=== PATIENT | female | born 1980 | race Caucasian/White ===

== ENCOUNTER 2017-08-28 21:30 | Day surgery (SDC) | payer OTHER ==
[2017-08-28] MEDS ORDERED: MORPHINE SULFATE 10 MG/ML INJ IV ONE (22:23)
[2017-08-28 22:39] LABS: ABSOLUTE BASOPHILS # (AUTO) 0.1 10^3/uL (0.0-0.2); ABSOLUTE EOSINOPHILS # (AUTO) 0.1 10^3/uL (0.0-0.6); ABSOLUTE LYMPHOCYTES (AUTO) 2.7 10^3/uL (0.5-4.7); ABSOLUTE NEUT (AUTO) 13.1 10^3/uL (1.7-8.2); BASOPHILS % (AUTO) 0.4 % (0-2); EOSINOPHILS % (AUTO) 0.6 % (0-6); HEMATOCRIT 36.8 % (36.0-47.0); HEMOGLOBIN 12.4 g/dL (12.0-15.5); MEAN CORPUSCULAR HEMOGLOBIN 30.1 pg (27.0-33.4); MEAN CORPUSCULAR HGB CONC 33.8 g/dL (32.0-36.0); MEAN CORPUSCULAR VOLUME 89 fl (80-97); MONOCYTES % (AUTO) 5.8 % (3-13); PLATELET COUNT 359 10^3/uL (150-450); RED BLOOD COUNT 4.13 10^6/uL (3.72-5.28); SEGMENTED NEUTROPHILS % (AUTO) 77.2 % (42-78); TOTAL CELLS COUNTED % (AUTO) 100 %
[2017-08-28 23:06] LABS: APPEARANCE,URINE CLEAR; BILIRUBIN,URINE NEGATIVE (NEGATIVE); COLOR,URINE YELLOW; GLUCOSE, URINE NEGATIVE (NEGATIVE); KETONES,URINE NEGATIVE (NEGATIVE); LEUKOCYTE ESTERASE,URINE NEGATIVE (NEGATIVE); NITRITE,URINE NEGATIVE (NEGATIVE); PROTEIN,URINE NEGATIVE (NEGATIVE); URINE SPECIFIC GRAVITY 1.013
[2017-08-28] MEDS ORDERED: FENTANYL CITRATE INJ/PF 100 MCG/2 ML AMPUL IV ONE (23:14)
[2017-08-28] MEDS ORDERED: HYDROMORPHONE HCL INJ/PF 2 MG/ML AMPULE IV ONE (23:27)
--- NOTE | 2017-08-28 23:29 | ER Document Report ---
ED General - General Chief Complaint: Abdominal Pain Stated Complaint: ABDOMINAL PAIN Time Seen by Provider: 08/28/17 21:58 Notes: Patient is a 36-year-old female presents with complaint of severe abdominal pain started today. She says she did have a small amount of bleeding that has since resolved. No fevers. No vomiting. She is . She has had 2 previous miscarriages. She recently found out she was . [facility] That time her ultrasound did not identify an IUP. Lars started having the pain and therefore came to the ER. She was formally on methotrexate due to history of psoriasis. She has not had this in over 4 months. TRAVEL OUTSIDE OF THE [place] IN LAST 30 DAYS: No - Related Data Allergies/Adverse Reactions: diphenhydramine [From Benadryl] Allergy (Verified 08/28/17 22:37) metoclopramide [From Reglan] Allergy (Verified 08/28/17 22:37) Past Medical History - Social History Smoking Status: Current Every Day Smoker Chew tobacco use (# tins/day): No Frequency of alcohol use: None Drug Abuse: Marijuana Family History: Reviewed & Not Pertinent Patient has suicidal ideation: No Patient has homicidal ideation: No Renal/ Medical History: Denies: Hx Peritoneal Dialysis Review of Systems - Review of Systems Notes: My Normal Review Basic REVIEW OF SYSTEMS: CONSTITUTIONAL : Denies fever, chills, or sweats. Denies recent illness. CARDIOVASCULAR: Denies chest pain. RESPIRATORY: Denies cough, cold, or chest congestion. Denies shortness of breath, difficulty breathing, or wheezing. GASTROINTESTINAL: Moderate abdominal pain. Denies nausea, vomiting, or diarrhea. Genital: Pelvic pain, Currently , Some vaginal bleeding. GENITOURINARY: Denies difficulty urinating, painful urination, burning, frequency, or blood in urine MUSCULOSKELETAL: Denies neck or back pain or joint pain or swelling. SKIN: Denies rash or skin lesions. NEUROLOGICAL: Denies altered mental status or loss of consciousness. Denies headache. Denies weakness or paralysis or loss of use of either side. Denies problems with gait or speech. Denies sensory or motor loss. ALL OTHER SYSTEMS REVIEWED AND NEGATIVE. Physical Exam - Vital signs Vitals: Temp 98.5 F 08/28/17 21:30 - Notes Notes: General Appearance: Well nourished, alert, cooperative, no acute distress, moderate to severe obvious discomfort. Vitals: reviewed, See vital signs table. Head: no swelling or tenderness to the head Eyes: PERRL, EOMI, Conjuctiva clear Mouth: No decreasd moisture Neck: Supple, no neck tenderness, No thyromegaly Lungs: No wheezing, No rales, No rhonci, No accessory muscle use, good air exchange bilaterally. Heart: Normal rate, Regular rythm, No murmur, no rub Abdomen: Normal BS, soft, No rigidity, abdomen is slightly distended but soft to palpation. She is tender diffusely but is worse in the lower abdomen and pelvic region. Pain is not significantly lateralizing., No guarding, no rebound , no abdominal masses, no organomegaly Pelvic exam: Pelvic exam performed with female technician biological health Jailene PCT. Patient has normal external genitalia. No blood in vaginal vault. Cervical office is currently closed. No abnormal discharge. Extremities: strength 5/5 in all extremities, good pulses in all extremities, no swelling or tenderness in the extremities, no edema. Skin: warm, dry, appropriate color, no rash Neuro: speech clear, oriented x 3, normal affect, responds appropriately to questions. Course - Re-evaluation Re-evalutation: 08/28/17 23:27 When initially evaluated the patient she was having significant amount of pain therefore I did a quick bedside FAST exam to rule out any free fluid in the abdomen pelvis. There is none on my bedside FAST exam. Patient continues to have increasing pain. I reevaluate her again her abdomen remains very tender. I have informed them that we need to have the ultrasound performed bedside. They are going to call to have the transvaginal ultrasound performed bedside. She is on a monitor. Heart rate is in the 90s. Blood pressure systolically is 145. I did repeat the FAST exam again and there continues not be any evidence of free fluid in abdomen. She received morphine and fentanyl. I have just added Dilaudid as well. Pelvic exam shows no blood in the vaginal vault and no clots in the cervical office. Os is closed at this time. 08/29/17 00:50 Patient's ultrasound shows no intrauterine and her hCG levels above 2000. There seems some adnexal lesions but no true ectopic at this time. Dr. Person, cylinder tester, agrees to evaluate the patient for concern for ectopic. 08/29/17 05:46 Dr. Person did evaluate the patient and agrees with concern for ectopic and took the patient to the OR. Dictation of this chart was performed using voice recognition software; therefore, there may be some unintended grammatical errors. - Vital Signs Vital signs: Temp Pulse Resp BP Pulse Ox 97.8 F 76 16 101/48 L 99 08/29/17 04:45 08/29/17 04:45 08/29/17 04:45 08/29/17 04:45 08/29/17 04:45 - Laboratory Result Diagrams: 08/28/17 22:18 Laboratory results interpreted by me: 08/28/17 08/28/17 08/28/17 22:18 22:18 22:50 WBC 17.0 H Absolute Neutrophils 13.1 H Beta HCG, Quant 2843.80 H Urine Blood SMALL H Urine Urobilinogen 4.0 H Discharge - Discharge Clinical Impression: Abdominal pain Qualifiers: Abdominal location: unspecified location Qualified Code(s): R10.9 - Unspecified abdominal pain Disposition: ADMITTED INPATIENT Admitting Provider: [facility] Admitted: Post
--- NOTE | 2017-08-29 00:39 | RADIOLOGY REPORT (SQ) ---
EXAM DESCRIPTION: US TRANSVAGINAL CLINICAL HISTORY: 36 years Female, abdominal pain in Comparison: None. TECHNIQUE: Transvaginal. LIMITATIONS: None. FINDINGS: No intrauterine identified. 0.9 cm endometrial stripe thickness. Heterogeneous, echogenic right adnexal mass measures 5.6 x 5.2 x 5.3 cm. Small right adnexal free fluid. Indeterminate 4.1 x 2.8 x 3.4 cm complex hypoechoic component of the left adnexa. Likely 3.9 x 3.5 x 3.6 cm complex hypoechoic left ovary. Bilateral adnexal components demonstrate no significant vascularity. IMPRESSION: No intrauterine identified. Indeterminate bilateral adnexal components and small free right adnexal fluid. Differential diagnosis includes occult early viable gestation, gestational loss, and ectopic gestation. OB consultation advised.
[2017-08-29] MEDS ORDERED: NORMAL SALINE 1000 ML 1,000 ML IV ONE (00:54)
[2017-08-29] MEDS ORDERED: FENTANYL CITRATE INJ/PF 100 MCG/2 ML AMPUL ONE ×3 (01:55→03:59)
[2017-08-29] MEDS ORDERED: PROPOFOL INJ 200 MG/20 ML VIAL IV ONE (01:55)
[2017-08-29] MEDS ORDERED: BUPIVACAINE HCL 0.25 % INJ/PF (2.5 MG/1 ML) 30 ML VIAL ONE (01:55)
[2017-08-29] MEDS ORDERED: ACETAMINOPHEN 100 ML IV ONE (01:55)
[2017-08-29] MEDS ORDERED: MIDAZOLAM 2 MG/2 ML INJ ONE (01:55)
[2017-08-29] MEDS ORDERED: HYDROMORPHONE HCL INJ/PF 2 MG/ML AMPULE ONE (01:56)
[2017-08-29] MEDS ORDERED: MORPHINE SULFATE 10 MG/ML INJ IV PRN (02:50)
[2017-08-29] MEDS ORDERED: FENTANYL CITRATE INJ/PF 100 MCG/2 ML AMPUL IV PRN ×3 (02:50)
[2017-08-29] MEDS ORDERED: PROMETHAZINE HCL INJ 25 MG/1 ML VIAL IV PRN (02:50)
[2017-08-29] MEDS ORDERED: MEPERIDINE HCL/PF INJ 25 MG/1 ML DISP.SYRIN IV PRN (02:50)
[2017-08-29] MEDS ORDERED: DEXTROSE 5%-LACTATED RINGERS 1,000 ML IV PRN (03:56)
[2017-08-29] MEDS ORDERED: OXYCODONE-ACETAMINOPHEN 5-325 MG TABLET PO PRN (03:57)
[2017-08-29] MEDS ORDERED: MORPHINE SULFATE 10 MG/ML INJ IM PRN (03:59)
[2017-08-29] MEDS ORDERED: IBUPROFEN 800 MG TABLET PO ONE (04:00)
--- NOTE | 2017-08-29 04:15 | OPERATIVE REPORT E ---
Operative Report NAME: MARY YOUNG : 1980 AGE: 36Y DATE OF SURGERY: 08/29/2017 ROOM: ED07 PREOPERATIVE DIAGNOSIS: ECTOPIC . POSTOPERATIVE DIAGNOSES: 1. ECTOPIC . 2. HEMOPERITONEUM. PROCEDURES: 1. Suction dilation and curettage. 2. Diagnostic laparoscopy with a right salpingectomy. ESTIMATED BLOOD LOSS: Approximately 500 mL from blood that was aspirated from her abdomen. SURGEON: Denys MCDANIELS M.D. ANESTHESIA: General. DESCRIPTION OF PROCEDURE: The patient was placed in a dorsal lithotomy position, prepped and draped in the usual sterile fashion. A speculum was placed. Cervix was visualized and grasped with a single-tooth tenaculum, sounded to a depth of 9 cm. Suction curettage was performed followed by sharp curettage followed by repeat suction with minimal tissue being recovered. The single-tooth tenaculum was removed. Hulka tenaculum was placed and the second was removed. Attention turned to the abdomen, where the subumbilical incision was made. Trocar was introduced with insufflation of the abdomen. Noted there was a hemoperitoneum with a large amounts of clot. A second punch hole made above the symphysis and a *------*was introduced and a third made on the left lateral to the umbilicus and an 10/11 was placed. Using the bipolar cautery, the right fallopian tube was removed. It contained the ectopic. It was placed in a Pleatman sac and removed. Clot and blood were aspirated from the abdomen. Hemostasis was noted. The instruments were removed and deflated. Trocar sleeves removed. The fascia closed with 0 Vicryl and the skin was closed with subcutaneous 4-0 Vicryl. The patient tolerated the procedure well and was taken to recovery in good condition. DICTATING PHYSICIAN: Denys MCDANIELS M.D. [id number] PHY#: [id number] ID: [id number] JOB#: [id number] ACCT: [id number] cc:Denys MCDANIELS M.D. >
[2017-08-29] MEDS ORDERED: HYDROMORPHONE HCL INJ/PF 2 MG/ML AMPULE IV ONE (04:45)
[2017-08-29 07:09] LABS: HEMOGLOBIN 8.2 g/dL (12.0-15.5); MEAN CORPUSCULAR HEMOGLOBIN 30.6 pg (27.0-33.4); MEAN CORPUSCULAR VOLUME 90 fl (80-97); PLATELET COUNT 314 10^3/uL (150-450); RED BLOOD COUNT 2.66 10^6/uL (3.72-5.28); RED CELL DISTRIBUTION WIDTH 12.8 % (11.5-14.0); WHITE BLOOD COUNT 23.8 10^3/uL (4.0-10.5)
[2017-08-29] MEDS ORDERED: NEOSTIGMINE METHYLSULFATE 10 MG/10 ML VIAL ONE (08:53)
[2017-08-29] MEDS ORDERED: DEXAMETHASONE SOD PHOSPHATE INJ 4 MG/1 ML VIAL ONE (08:53)
[2017-08-29] MEDS ORDERED: SUCCINYLCHOLINE CHLORIDE INJ 200 MG/10 ML VIAL ONE (08:53)
[2017-08-29] MEDS ORDERED: LIDOCAINE 2% INJ-PF (20 MG/ML) 2 ML AMPUL ONE (08:53)
[2017-08-29] MEDS ORDERED: ROCURONIUM BROMIDE INJ 50 MG/5 ML VIAL IV ONE (08:53)
[2017-08-29] MEDS ORDERED: GLYCOPYRROLATE INJ 0.4 MG/2 ML VIAL ONE (08:53)
[2017-08-29] MEDS ORDERED: ONDANSETRON HCL INJ/PF 4 MG/2 ML SDV ONE (08:53)
[2017-08-29 09:34] VITALS: BP 128/86
== END 2017-08-29 11:50 | disposition home or self-care (01) ==
LOC: ER 21:30 → UNDOADMIN 08-29 01:47 → EH 08-29 01:47 → OROUT 08-29 03:39 → ER 08-29 03:39 → 2N 08-29 05:00 → EH 08-29 05:00 → 2N 08-29 05:00 → UNDODISIN 08-29 11:50 → OROUT 08-29 11:50
PROVIDERS: ATTEND Obstetrics & Gynecology Gynecology
DX: K66.1 Hemoperitoneum (principal); O00.101 Right tubal pregnancy without intrauterine pregnancy; E66.9 Obesity, unspecified; Z68.34 Body mass index [BMI] 34.0-34.9, adult
CPT/HCPCS: 99285; 96374; 96375; 86900; 86901; 36415 ×2; 84702; 85025; 85027; 81001; 88305 ×2; 76817; 93976; 59151; 58120; J2250; J3490 ×2; J1100; J3010 ×2; J2270 ×2; J1170; J0330; J2405; J2704; J0131; 840

== ENCOUNTER 2017-08-31 12:55 | Emergency (ER) | payer OTHER ==
[2017-08-31] MEDS ORDERED: PROCHLORPERAZINE EDISYLATE INJ 10 MG/2 ML VIAL IV ONE (13:08)
[2017-08-31] MEDS ORDERED: KETOROLAC TROMETHAMINE INJ/PF 30 MG/1 ML SDV IV ONE (13:09)
--- NOTE | 2017-08-31 13:10 | ER Document Report ---
ED Medical Screen (RME) - General Chief Complaint: Fever Stated Complaint: FEVER Time Seen by Provider: 08/31/17 13:03 Notes: RAPID MEDICAL EVALUATION DISCLOSURE I have seen this patient as part of a Rapid Medical Evaluation and, if applicable, placed any initially appropriate orders. The patient will be seen and fully evaluated, including a full history and physical exam, by a provider ( in Main ED or Fast Track) when a room becomes available. 36-year-old female here with complaints of fevers and headache ongoing for the past 4 days. Light and sound did not make the headache worse (however the patient is wearing her sunglasses inside). She has tried Tylenol and Motrin, last dose 9:45 AM without much relief. Denies numbness tingling weakness. Of note, just had surgery recently for "tubal ". TRAVEL OUTSIDE OF THE [place] IN LAST 30 DAYS: No - Related Data Allergies/Adverse Reactions: diphenhydramine [From Benadryl] Allergy (Verified 08/28/17 22:37) metoclopramide [From Reglan] Allergy (Verified 08/28/17 22:37) Penicillins Allergy (Verified 08/31/17 13:02) Past Medical History - Social History Chew tobacco use (# tins/day): No Drug Abuse: None Renal/ Medical History: Denies: Hx Peritoneal Dialysis Past Surgical History: Reports: Hx Gynecologic Surgery - tubal ruptured and removed on right side-sx 08/29/17
--- NOTE | 2017-08-31 14:08 | ER Document Report ---
ED General - General Chief Complaint: Fever Stated Complaint: FEVER Time Seen by Provider: 08/31/17 13:03 Notes: The patient is a 36-year-old female who presents with a dull frontal headache intermittently for the past 4 days. She had an emergent laparoscopic D&C 4 days ago after a ruptured ectopic . She is having mild fevers up to 101 at home, but this resolved 2 days ago. She is taking 800 mg Motrin with some relief of her headache, but it is still present. Patient received Compazine and Toradol in triage and her headache has mostly resolved, but she is feeling jittery, similar to when she had Reglan in the past. She denies neck stiffness, altered mental status, sudden onset of headache, urinary symptoms, flank pain, cough, nausea, vomiting, shortness of breath or sore throat. TRAVEL OUTSIDE OF THE [place] IN LAST 30 DAYS: No - Related Data Allergies/Adverse Reactions: metoclopramide [From Reglan] Allergy (Verified 08/28/17 22:37) Penicillins Allergy (Verified 08/31/17 13:02) prochlorperazine [From Compazine] Allergy (Verified 08/31/17 15:32) Past Medical History - General Information source: Patient - Social History Smoking Status: Never Smoker Chew tobacco use (# tins/day): No Drug Abuse: None Family History: Reviewed & Not Pertinent Patient has suicidal ideation: No Patient has homicidal ideation: No Renal/ Medical History: Denies: Hx Peritoneal Dialysis Past Surgical History: Reports: Hx Gynecologic Surgery - tubal ruptured and removed on right side-sx 08/29/17 Review of Systems - Review of Systems Notes: REVIEW OF SYSTEMS: CONSTITUTIONAL: +fevers, -chills EENT: -eye pain, -difficulty swallowing, -nasal congestion CARDIOVASCULAR: -chest pain, -syncope. RESPIRATORY: -cough, -SOB GASTROINTESTINAL: -abdominal pain, -nausea, -vomiting, -diarrhea GENITOURINARY: -dysuria, -hematuria MUSCULOSKELETAL: -back pain, -neck pain SKIN: -rash or skin lesions. HEMATOLOGIC: -easy bruising or bleeding. LYMPHATIC: -swollen, enlarged glands. NEUROLOGICAL: -altered mental status or loss of consciousness, +headache, - neurologic symptoms PSYCHIATRIC: -anxiety, -depression. ALL OTHER SYSTEMS REVIEWED AND NEGATIVE. Physical Exam - Vital signs Vitals: Temp Pulse Resp BP Pulse Ox 98.8 F 102 H 16 153/74 H 100 08/31/17 13:00 08/31/17 13:00 08/31/17 13:00 08/31/17 13:08/31/17 13:00 - Notes Notes: PHYSICAL EXAMINATION: GENERAL: Well-appearing, well-nourished and in no acute distress. HEAD: Atraumatic, normocephalic. EYES: Pupils equal round and reactive to light, extraocular movements intact, sclera anicteric, conjunctiva are normal. ENT: nares patent, oropharynx clear without exudates. Moist mucous membranes. NECK: Normal range of motion, supple without lymphadenopathy. No nuchal rigidity. LUNGS: Breath sounds clear to auscultation bilaterally and equal. No wheezes rales or rhonchi. HEART: Tachycardia, regular rhythm. ABDOMEN: Soft, nontender, normoactive bowel sounds. No guarding, no rebound. No masses appreciated. EXTREMITIES: Normal range of motion, no pitting or edema. No cyanosis. NEUROLOGICAL: Cranial nerves grossly intact. Normal speech, normal gait. Normal sensory and motor exams. PSYCH: Normal mood, normal affect. SKIN: Ecchymosis over anterior abdomen. Course - Re-evaluation Re-evalutation: Patient appears well. Her headache has completely resolved after the Compazine and Toradol, but she is now having extrapyramidal symptoms on my evaluation. Provided her with Benadryl and IV fluids with complete relief of her headache. She was still having some akithesia, which resolved after Cogentin. Her surgical wounds are clean and no signs of infection. She also has no abdominal tenderness to suggest an intra-abdominal infection. She has absolutely no signs of meningitis at this time and has full range of her neck with negative Brudzinski's and Kernig's signs. Do not suspect SAH or ICH at this time. Told to continue anti-inflammatories, Tylenol and oral fluids follow-up with her primary care physician. Given strict return precautions and she understands. - Vital Signs Vital signs: Temp Pulse Resp BP Pulse Ox 98.3 F 90 16 123/60 98 08/31/17 15:30 08/31/17 15:30 08/31/17 15:30 08/31/17 15:30 08/31/17 15:30 - Laboratory Laboratory results interpreted by me: 08/31/17 14:25 Urine Blood SMALL H Urine Urobilinogen 4.0 H Ur Leukocyte Esterase SMALL H Discharge - Discharge Clinical Impression: Headache Qualifiers: Headache type: unspecified Headache chronicity pattern: unspecified pattern Intractability: not intractable Qualified Code(s): R51 - Headache Condition: Stable Disposition: HOME, SELF-CARE Additional Instructions: HEADACHE: The physician does not feel that the headache you are experiencing has a serious underlying cause. Most headaches are due to emotional stress, with resultant muscle tension (tension headache). Occasionally, headaches are secondary to changes in the blood vessels of the scalp (vascular headache and migraine headache). Sometimes, a headache is the first symptom of another developing illness, such as a viral infection. You have no evidence of stroke, bleeding, meningitis, or other serious cause of your headache. The treatment of headaches varies with the severity and cause of the pain. Not all headaches need pain shots. In fact, there is evidence that using narcotics for headaches may make them worse in the long run. The physician will determine the therapy that's in your best interest. If you develop a fever, if the headache is different from any you've previously experienced, or if the headache progressively worsens, then call your physician at once or go to the emergency room. USE OF DIPHENHYDRAMINE: Diphenhydramine (Benadryl) is an antihistamine and has been recommended to help treat your headache and to prevent side effects of other medications used to treat headaches. The medication can be repeated four times daily. Age Elixir (12.5 mg/tsp) 25 mg pill adult 1-2 tabs Antihistamines may cause drowsiness, especially with the first dose. Do not operate machinery or drive while under the effects of the medication. Do not combine the medication with alcohol, or with any other medication without talking to your doctor. ANTINAUSEA MEDICATION: You have been given a medication to suppress nausea and vomiting. This type of medication can be given as a shot, pill, or suppository. It will usually last for many hours. Pills and shots usually last six to eight hours, suppositories last about 12 hours. For the typical illness, only one or two doses of the medication may be necessary. Mild lightheadedness may occur. This type of medicine can cause drowsiness. Do not drive or operate dangerous machinery while under its influence. Do not mix with alcohol. See your doctor at once if you have muscle spasms or tightness, or uncontrollable motions (particularly of the neck, mouth, or jaw). Persistent vomiting or severe lightheadedness should also be evaluated by the physician. INTRAVENOUS COMPAZINE FOR HEADACHE: You have received therapy for headaches, using intravenous Compazine. This treatment is dramatically successful in relieving the headache in about 50 percent of cases. When it works, it provides a rapid method of eliminating the headache without resorting to narcotics (and the problems associated with them). Most patients still feel fully alert after the Compazine, but others may be slightly drowsy. It's best not to drive or work with machinery for six to eight hours. Do not take alcohol or other medication unless you discuss it with the doctor. If you develop tightness and spasms in your muscles, especially the neck and tongue, you should return. This is a side effect which can be treated. TORADOL INJECTION: You have been given an injection of ketorolac tromethamine (Toradol). This is an excellent, safe drug for pain control. It also has potent antiinflammatory action. You should have significant pain relief within about one hour. Toradol is not addicting and is non-sedating. It does not interfere with driving or work. Call or return if you develop itching, hives, shortness of breath, or rash. FOLLOW-UP CARE: If you have been referred to a physician for follow-up care, call the physician s office for an appointment as you were instructed or within the next two days. If you experience worsening or a significant change in your symptoms, notify the physician immediately or return to the Emergency Department at any time for re-evaluation. Forms: Elevated Blood Pressure Referrals: JOSE DINH MD [NO LOCAL MD] - Follow up as needed
[2017-08-31] MEDS ORDERED: DIPHENHYDRAMINE HCL 50 MG/ML VIAL IV ONE (14:12)
[2017-08-31] MEDS ORDERED: NORMAL SALINE 1000 ML 1,000 ML IV ONE (14:13)
[2017-08-31] MEDS ORDERED: BENZTROPINE MESYLATE INJ 2 MG/2 ML AMPULE IM ONE ×2 (14:15→14:55)
[2017-08-31 14:49] LABS: APPEARANCE,URINE SLIGHTLY-CLOUDY; BILIRUBIN,URINE NEGATIVE (NEGATIVE); COLOR,URINE YELLOW; GLUCOSE, URINE NEGATIVE (NEGATIVE); KETONES,URINE NEGATIVE (NEGATIVE); LEUKOCYTE ESTERASE,URINE SMALL (NEGATIVE); NITRITE,URINE NEGATIVE (NEGATIVE); PROTEIN,URINE NEGATIVE (NEGATIVE); URINE SPECIFIC GRAVITY 1.012
[2017-08-31 15:32] VITALS: BP 123/60
== END 2017-08-31 15:32 | disposition home or self-care (01) ==
LOC: ER 12:55
DX: R51 Headache (principal); G25.71 Drug induced akathisia; T50.905A Adverse effect of unspecified drugs, medicaments and biological substances, initial encounter; Y92.238 Other place in hospital as the place of occurrence of the external cause; R00.0 Tachycardia, unspecified; Z98.890 Other specified postprocedural states; Z88.8 Allergy status to other drugs, medicaments and biological substances; Z88.0 Allergy status to penicillin
CPT/HCPCS: 99284; 96372; 96361; 96374; 96375; 81001; J0515; J1200; J1885; J0780; J7030